=== PATIENT | female | born 1995 | race American Indian/Alaskan Native ===

== ENCOUNTER 2017-11-09 12:04 | Emergency (ER) | payer OTHER ==
[2017-11-09 12:19] VITALS: RESP 16
[2017-11-09 12:41] LABS: HEMOGLOBIN 12.6 g/dL (11.0-16.0); MEAN CELL VOLUME 86.7 fL (81.0-99.0); MEAN CORPUSCULAR HEMOGLOBIN 29.2 pg (27.0-31.0); MEAN CORPUSCULAR HGB CONC 33.7 g/dL (33.0-37.0); MEAN PLATELET VOLUME 9.1 fL (7.2-11.7); RBC 4.3 Mil/uL (3.80-5.20); RED CELL DISTRIBUTION WIDTH 13.4 % (11.5-14.5); WHITE BLOOD COUNT 10.5 K/uL (4.8-10.8)
[2017-11-09] MEDS ORDERED: SODIUM CHLORIDE 0.9% IV STA (12:48)
[2017-11-09] MEDS ORDERED: Sodium Chloride 0.9% 1,000 ML IV STA (12:48)
[2017-11-09] MEDS ORDERED: LIDOCAINE IV STA (12:48)
--- NOTE | 2017-11-09 12:48 | C.PDOC ---
History Of Present Illness 22 y/o female presents to the ED with sudden onset LLQ back pain. Patient states it began yesterday with intermittent sharp radiating pain to the pelvis area associated with vomiting. She denies kidney stones or UTI symptoms. LMP 11/08 PMD: Dr. Lorrie Dumotn Time Seen by Provider: 11/09/17 12:39 Chief Complaint (Nursing): Abdominal Pain History Per: Patient History/Exam Limitations: no limitations Onset/Duration Of Symptoms: Days Current Symptoms Are (Timing): Still Present Location Of Pain/Discomfort: LLQ (back) Radiation Of Pain To:: Other (pelvis area) Quality Of Discomfort: "Pain" Associated Symptoms: Vomiting. denies: Urinary Symptoms Recent travel outside of the [place]: No Past Medical History Reviewed: Historical Data, Nursing Documentation, Vital Signs Vital Signs: Last Vital Signs Temp 97.8 F 11/09/17 12:14 Pulse 78 11/09/17 12:14 Resp 16 11/09/17 12:14 BP 115/72 11/09/17 12:14 Pulse Ox 98 11/09/17 12:57 - Medical History PMH: Asthma Surgical History: No Surg Hx Family History: States: Unknown Family Hx - Social History Hx Tobacco Use: No Hx Alcohol Use: No Hx Substance Use: Yes - Immunization History Hx Tetanus Toxoid Vaccination: No Hx Influenza Vaccination: No Hx Pneumococcal Vaccination: No Review Of Systems Except As Marked, All Systems Reviewed And Found Negative. Gastrointestinal: Positive for: Vomiting Genitourinary: Positive for: Pelvic Pain Musculoskeletal: Positive for: Back Pain Physical Exam - Physical Exam Appears: In Acute Distress Skin: Normal Color, Warm, Dry Head: Atraumatic, Normacephalic Eye(s): bilateral: Normal Inspection, PERRL, EOMI Nose: Normal Throat: Normal Neck: Normal, Supple Cardiovascular: Rhythm Regular, No Murmur Respiratory: Normal Breath Sounds, No Decreased Breath Sounds Gastrointestinal/Abdominal: No Normal Exam (active vomiting upon arrival) Back: Normal Inspection, No CVA Tenderness, No Vertebral Tenderness Pelvic: Other (mild tendernes to the LLQ) Extremity: Normal ROM Neurological/Psych: Oriented x3, No Other (no CVT) ED Course And Treatment - Laboratory Results Result Diagrams: 11/09/17 12:34 11/09/17 12:34 O2 Sat by Pulse Oximetry: 98 (RA) Pulse Ox Interpretation: Normal Progress - Re-Evaluation Re-evaluation Note: 11/09/17 15:05 ASYMPT NV RESOLVED. APPEARS COMFORTABLE. - Data Reviewed Data Reviewed: Lab, Diagnostic imaging, Old records Disposition Counseled Patient/Family Regarding: Studies Performed, Diagnosis, Need For Followup, Rx Given - Disposition Referrals: Vinnie Almendarez Jr., MD [Staff Provider] - Disposition: HOME/ ROUTINE Disposition Time: 15:07 Condition: IMPROVED Prescriptions: Ibuprofen [Motrin] 600 mg PO Q6 #30 tab Promethazine [Phenergan] 25 mg PO TID PRN #12 tab PRN Reason: Nausea/Vomiting Tamsulosin [Flomax] 0.4 mg PO DAILY #14 cap Instructions: Renal Colic (DC) Forms: [employer] (Romansh) - Clinical Impression Clinical Impression: Vomiting, Renal colic
[2017-11-09 12:58] LABS: ALB/GLOB RATIO 1.2 (1.0-2.1); ALBUMIN 4.1 g/dL (3.5-5.0); ALT/SGPT 17 U/L (9-52); AST/SGOT 39 U/L (14-36); BLOOD UREA NITROGEN 8 mg/dL (7-17); CALCIUM 9.3 mg/dl (8.6-10.4); GFR AFRICAN-AMERICAN > 60; GFR NON-AFRICAN AMERICAN > 60
[2017-11-09] MEDS ORDERED: LIDOCAINE IV ONE (13:00)
[2017-11-09] MEDS ORDERED: SODIUM CHLORIDE 0.9% IV ONE (13:00)
[2017-11-09] MEDS ORDERED: Sodium Chloride 0.9% 1,000 ML ONE (13:08)
[2017-11-09 14:06] LABS: SQUAMOUS EPITHIAL 2 /hpf (0-5); URINE BILIRUBIN NEGATIVE (NEGATIVE); URINE BLOOD 2+ (NEGATIVE); URINE CLARITY Clear (Clear); URINE COLOR Yellow (YELLOW); URINE GLUCOSE (UA) NORMAL (Normal); URINE LEUKOCYTE ESTERASE NEG Leu/uL (Negative); URINE PROTEIN 1+ mg/dL (NEGATIVE); URINE UROBILINOGEN NORMAL mg/dL (0.2-1.0)
--- NOTE | 2017-11-09 14:24 | CT ---
PROCEDURE: CT Abdomen and Pelvis without intravenous contrast HISTORY: L FLANK PAIN COMPARISON: None. TECHNIQUE: Contiguous images were obtained from the domes of the diaphragms to the upper thighs without the administration of intravenous contrast. Oral contrast was not administered. Radiation dose: Total exam DLP = 428 mGy-cm. This CT exam was performed using one or more of the following dose reduction techniques: Automated exposure control, adjustment of the mA and/or kV according to patient size, and/or use of iterative reconstruction technique. FINDINGS: LOWER THORAX: Unremarkable. LIVER: Unremarkable. No gross lesion or ductal dilatation. GALLBLADDER AND BILE DUCTS: Unremarkable. PANCREAS: Unremarkable. No gross lesion or ductal dilatation. SPLEEN: Unremarkable. ADRENALS: Unremarkable. No mass. KIDNEYS AND URETERS: Unremarkable. No hydronephrosis. No solid mass. VASCULATURE: Unremarkable. No aortic aneurysm. BOWEL: Unremarkable. No obstruction. No gross mural thickening. APPENDIX: Unremarkable. Normal appendix. PERITONEUM: Unremarkable. Trace fluid in the right cul-de-sac. No free air. LYMPH NODES: Unremarkable. No enlarged lymph nodes. BLADDER: Unremarkable. REPRODUCTIVE: Unremarkable. BONES: No acute fracture. OTHER FINDINGS: Umbilical ornamentation. IMPRESSION: No urolithiasis or evidence of recently passed genitourinary calculus. No acute abdominal pelvic pathology.
[2017-11-09 15:34] VITALS: BP 105/78; PULSE 76; TEMP 98.7; O2SAT 99
== END 2017-11-09 15:33 | disposition home or self-care (01) ==
LOC: C.ER 12:04
DX: N23 Unspecified renal colic (principal); R11.10 Vomiting, unspecified
CPT/HCPCS: 74176; 80053; 81001; 84702; 85027; 96361; 96372; 96374; 99285; J0780; J1885; J2001; J7040

== ENCOUNTER 2018-01-07 02:34 | Emergency (ER) | payer OTHER ==
[2018-01-07 03:05] VITALS: O2SAT 100
[2018-01-07] MEDS ORDERED: Sodium Chloride 0.9% 1,000 ML IV ONE (03:05)
--- NOTE | 2018-01-07 03:07 | C.PDOC ---
Chief Complaint (Nursing): Abdominal Pain Past Medical History Vital Signs: Last Vital Signs Temp 97.7 F 01/07/18 02:59 Pulse 72 01/07/18 02:59 Resp 20 01/07/18 02:59 BP 120/77 01/07/18 02:59 Pulse Ox 100 01/07/18 02:59 - Medical History PMH: Asthma Family History: States: Unknown Family Hx - Social History Hx Tobacco Use: No Hx Alcohol Use: No Hx Substance Use: Yes (marijuana occassionally) - Immunization History Hx Tetanus Toxoid Vaccination: No Hx Influenza Vaccination: No Hx Pneumococcal Vaccination: No ED Course And Treatment O2 Sat by Pulse Oximetry: 100 Disposition - Disposition
--- NOTE | 2018-01-07 03:09 | C.PDOC ---
History Of Present Illness 22 year old female patient presents to the ER with abdominal cramping for a couple of days associated with her period. Patient also reports of mild low back pain and 10 episodes of diarrhea. Patient denies of any urinary symptoms, fever, and vomiting. Patient does not have any PSHx, has not been , and does not take any medications. Patient reports she has a positive PPD but has not had a CXR done yet. Chief Complaint (Nursing): Abdominal Pain History Per: Patient History/Exam Limitations: no limitations Onset/Duration Of Symptoms: Days Current Symptoms Are (Timing): Still Present Context: Other (Menstrual period) Location Of Pain/Discomfort: Suprapubic Associated Symptoms: Diarrhea, Back Pain (mild). denies: Fever, Vomiting, Urinary Symptoms Exacerbating Factors: Supine Additional History Per: Patient Abnormal Vaginal Bleeding: No Past Medical History Reviewed: Historical Data, Nursing Documentation, Vital Signs Vital Signs: Last Vital Signs Temp 98.5 F 01/07/18 06:01 Pulse 57 L 01/07/18 06:01 Resp 18 01/07/18 06:01 BP 100/61 01/07/18 06:01 Pulse Ox 100 01/07/18 06:01 - Medical History PMH: Asthma Surgical History: No Surg Hx Family History: States: Unknown Family Hx - Social History Hx Tobacco Use: No Hx Alcohol Use: No Hx Substance Use: Yes (marijuana occassionally) - Immunization History Hx Tetanus Toxoid Vaccination: No Hx Influenza Vaccination: No Hx Pneumococcal Vaccination: No Review Of Systems Except As Marked, All Systems Reviewed And Found Negative. Constitutional: Negative for: Fever Gastrointestinal: Positive for: Abdominal Pain (mild suprapubic pain ), Diarrhea. Negative for: Vomiting Genitourinary: Positive for: Vaginal Bleeding (dysmenorrhea) Musculoskeletal: Positive for: Back Pain (mild low back pain) Physical Exam - Physical Exam Appears: Non-toxic, No Acute Distress Skin: Normal Color, Warm, Dry Head: Atraumatic, Normacephalic Eye(s): bilateral: Normal Inspection Ear(s): Bilateral: Normal Nose: Normal Oral Mucosa: Moist Tongue: Normal Appearing Lips: Normal Appearing Throat: Normal Neck: Normal ROM, Supple Chest: Symmetrical, No Deformity Cardiovascular: Rhythm Regular Respiratory: Normal Breath Sounds, No Rales, No Rhonchi, No Wheezing Gastrointestinal/Abdominal: Soft, Tenderness (mild suprapubic), No Guarding, No Rebound Back: No CVA Tenderness Extremity: Normal ROM (x4) Pulses: Left Radial: Normal (+2), Right Radial: Normal (+2) Neurological/Psych: Oriented x3, Normal Speech Gait: Steady ED Course And Treatment - Laboratory Results Result Diagrams: 01/07/18 03:23 01/07/18 03:23 O2 Sat by Pulse Oximetry: 100 (RA) Pulse Ox Interpretation: Normal - Radiology CXR: Interpreted by Me, Viewed By Me CXR Interpretation: Yes: No Acute Disease. No: Infiltrates Medical Decision Making Medical Decision Making: Impression: dysmenorrhea and abdominal pain. ordered: Blood work, urinalysis, Bentyl, IV fluid, Toradol Disposition - Disposition Referrals: [facility] [Outside] Disposition: HOME/ ROUTINE Disposition Time: 06:25 Condition: FAIR Prescriptions: Naproxen [Naprosyn] 500 mg PO BID #20 tablet Instructions: Menstrual Cramps (DC) Forms: [employer] (Bermudian) Print Language: YORUBA - Clinical Impression Clinical Impression: Dysmenorrhea - Scribe Statement The provider has reviewed the documentation as recorded by the Scribe Hammer Do Provider Attestation: All medical record entries made by the Scribe were at my direction and personally dictated by me. I have reviewed the chart and agree that the record accurately reflects my personal performance of the history, physical exam, medical decision making, and the department course for this patient. I have also personally directed, reviewed, and agree with the discharge instructions and disposition.
[2018-01-07] MEDS ORDERED: Sodium Chloride 0.9% 1,000 ML ONE (03:25)
[2018-01-07 03:26] LABS: BASO % 0.4 % (0.0-2.0); EOS % 0.3 % (0.0-4.0); HEMOGLOBIN 12.5 g/dL (11.0-16.0); LYMPH # 1.7 K/uL (1.0-4.3); MEAN CELL VOLUME 86.5 fL (81.0-99.0); MEAN CORPUSCULAR HEMOGLOBIN 29.2 pg (27.0-31.0); MEAN CORPUSCULAR HGB CONC 33.7 g/dL (33.0-37.0); MEAN PLATELET VOLUME 8.8 fL (7.2-11.7); MONO # 0.7 K/uL (0.0-0.8); MONO % 7.2 % (0.0-10.0); NEUT # 7.7 K/uL (1.8-7.0); NEUT % 75.1 % (50.0-75.0); NRBC % 0.1 % (0.0-2.0); RBC 4.28 Mil/uL (3.80-5.20); RED CELL DISTRIBUTION WIDTH 13.1 % (11.5-14.5); WHITE BLOOD COUNT 10.2 K/uL (4.8-10.8)
[2018-01-07 03:34] LABS: HCG,QUALITATIVE URINE NEGATIVE (NEGATIVE); SQUAMOUS EPITHIAL 1 /hpf (0-5); URINE BILIRUBIN NEGATIVE (NEGATIVE); URINE BLOOD NEGATIVE (NEGATIVE); URINE CLARITY Clear (Clear); URINE COLOR Yellow (YELLOW); URINE GLUCOSE (UA) NORMAL (Normal); URINE LEUKOCYTE ESTERASE NEG Leu/uL (Negative); URINE PROTEIN 1+ mg/dL (NEGATIVE)
[2018-01-07 03:39] LABS: ALB/GLOB RATIO 1.5 (1.0-2.1); ALBUMIN 4.3 g/dL (3.5-5.0); ALT/SGPT 26 U/L (9-52); AST/SGOT 22 U/L (14-36); BLOOD UREA NITROGEN 9 mg/dL (7-17); CALCIUM 9.4 mg/dl (8.6-10.4); GFR AFRICAN-AMERICAN > 60; GFR NON-AFRICAN AMERICAN > 60; LIPASE 89 U/L (23-300)
[2018-01-07 03:43] LABS: BARBITURATES, UR NEGATIVE (NEGATIVE); BENZODIAZEPINES, UR NEGATIVE (NEGATIVE); OPIATES, UR NEGATIVE (NEGATIVE); PHENCYCLIDINE, UR NEGATIVE (NEGATIVE)
[2018-01-07] MEDS ORDERED: DiphenhydrAMINE 50 mg/ml Inj IVP STA (03:57)
[2018-01-07] MEDS ORDERED: DiphenhydrAMINE 50 mg/ml Inj ONE (04:23)
[2018-01-07 06:03] VITALS: BP 100/61; PULSE 57; RESP 18; TEMP 98.5
--- NOTE | 2018-01-07 08:23 | RAD ---
HISTORY: Positive PPD reaction COMPARISON: No prior. TECHNIQUE: Chest PA and lateral FINDINGS: LUNGS: No active pulmonary disease. PLEURA: No significant pleural effusion identified. No pneumothorax apparent. CARDIOVASCULAR: Normal. OSSEOUS STRUCTURES: No significant abnormalities. VISUALIZED UPPER ABDOMEN: Normal. OTHER FINDINGS: None. IMPRESSION: No active disease.
== END 2018-01-07 06:03 | disposition home or self-care (01) ==
LOC: C.ER 02:34
DX: N94.6 Dysmenorrhea, unspecified (principal)
CPT/HCPCS: 71046; 80053; 80324; 80345; 80346; 80349; 80353; 80358; 80361; 81001; 83690; 83992; 84703; 85025; 96361; 96372; 96374; 96375; 99284; J0500; J0780; J1200; J1885; J2405; J7030